=== PATIENT | male | born 1930 | race Caucasian/White ===

== ENCOUNTER 2016-11-06 12:26 | Inpatient (IN) | payer OTHER, BC ==
[2016-11-06] MEDS ORDERED: Sodium Chloride 0.9% 1,000 ML PRIMARY IV ONE (12:38)
[2016-11-06] MEDS ORDERED: NORMAL SALINE 10 ML SYRINGE FLUSH IVP PRN ×2 (12:38→15:43)
[2016-11-06] MEDS ORDERED: IPRATROPIUM/ALBUTEROL SULFATE 3 ML NEB NEB ONE (12:38)
[2016-11-06 13:23] LABS: BILIRUBIN,TOTAL 0.6 mg/dL (0.3-1.2); BUN/CREATININE RATIO 25.71 (6-20); CALCIUM 8.4 mg/dL (8.7-10.7); CREATININE 1.4 mg/dL (0.70-1.50); POTASSIUM 4.2 meq/L (3.8-5.2); TOTAL PROTEIN 6.6 g/dL (6.1-8.0)
[2016-11-06 13:25] LABS: BASOPHILS # (AUTO) 0.02 10*3/UL; BASOPHILS % (AUTO) 0.3 % (0-1); EOSINOPHILS % (AUTO) 2.3 % (0-8); HEMATOCRIT 35.6 % (42.0-52.0); IMM GRAN % (AUTO) 0.2 % (0-5); IMM GRAN# (AUTO) 0.01 10*3/UL; LYMPHOCYTES # (AUTO) 1.01 10*3/uL; LYMPHOCYTES % (AUTO) 16.8 % (10-50); MEAN CORPUSCULAR HEMOGLOBIN 28.6 PG (27-31); MEAN CORPUSCULAR HGB CONC 30.9 g/dL (33-37); MEAN PLATELET VOLUME 10.1 FL (7.4-12.2); MONOCYTES # (AUTO) 0.74 10*3/UL (0.3-0.8); MONOCYTES % (AUTO) 12.3 % (5-15); NEUTROPHILS # (AUTO) 4.09 10*3/UL; NEUTROPHILS % (AUTO) 68.1 % (50-80); RDW COEFFICIENT OF VARIATION 13.4 % (11.5-14.5); RED BLOOD COUNT 3.84 10^6/uL (4.70-6.10); WHITE BLOOD COUNT 6.01 10^3/uL (4.8-10.8)
[2016-11-06 13:29] LABS: PLATELET MORPHOLOGY COMMENT NORMAL MORPHOLOGY (NORM)
[2016-11-06] MEDS ORDERED: ALBUTEROL SULFATE 5 MG/ML-20 ML BOTTLE NEB ONE (13:43)
[2016-11-06] MEDS ORDERED: ALBUTEROL SULFATE 2.5 MG/3 ML NEB ONE (13:53)
[2016-11-06] MEDS ORDERED: cefTRIAXone Inj 2 GM in Sodium Chloride 0.9% 100 ML IV ONE (14:22)
[2016-11-06] MEDS ORDERED: ONDANSETRON 4 MG/2 ML VIAL IVP PRN (15:43)
[2016-11-06] MEDS ORDERED: LIDOCAINE W/ SODIUM BICARB 0.5 ML SYR SUBD PRN (15:43)
[2016-11-06] MEDS: IPRATROPIUM/ALBUTEROL SULFATE 3 ML NEB NEB SCH ×2 (16:19→20:39)
--- NOTE | 2016-11-06 16:34 | PDOC ---
History and Physical - History of Present Illness History of Present Illness: This very nice 86-year-old gentleman with past medical history of atrial fibrillation on Eliquis comes in with the 2-3 days of increased cough and shortness of breath. He also has +3 edema in his lower extremities. His chest pain nausea vomiting his last echo was believed that 9 months ago Past Medical History Medical History: A. fib, BPH Tobacco Use: Former Smoker Substance Use Type: None Medication / Allergies Home Medications: Home Medications Medication Instructions Recorded Confirmed Type Amlodipine Besylate 5 mg PO DAILY 11/06/16 11/06/16 History Apixaban [Eliquis] 5 mg PO DAILY 11/06/16 11/06/16 History Finasteride 5 mg PO DAILY 11/06/16 11/06/16 History Hydrochlorothiazide 25 mg PO DAILY 11/06/16 11/06/16 History Tamsulosin HCl [Flomax] 0.4 mg PO DAILY 11/06/16 11/06/16 History Allergies/Adverse Reactions: Allergies Allergy/AdvReac Type Severity Reaction Status Date / Time succinylcholine chloride Allergy NOT Verified 11/06/16 12:29 [From Anectine] APPLICABLE Review of Systems - Review of Systems All Systems: Reviewed & No Additional Complaints Except as Stated - Cardiovascular Cardiovascular: DENIES: Chest Pain - Gastrointestinal Gastrointestinal / Abdominal: DENIES: Negative System Review, Nausea, Vomiting, Diarrhea, Constipation, Abdominal Pain, Bloody Stool, Poor Appetite, Heartburn, Regurgitation, Bloating, Lactose Intolerance, Melena, Bright Red Blood Per Rectum, Other, See HPI - Genitourinary Genitourinary: DENIES: Negative System Review, Pain, Burning, Hematuria, Incontinence, Urgency, Hesitant Stream, Decreased Stream, Nocutria, Discharge, Sexual Dyfunction, Other, See HPI - Musculoskeletal Musculoskeletal: DENIES: Negative System Review, Back Pain, Neck Pain, Swelling , Calf Pain, Muscle Pain, Cramping, Joint Pain - Hands, Joint Pain - Elbows, Joint Pain - Shoulders, Joint Pain - Hips, Joint Pain - Knees, Joint Pain - Feet , AM Stiffness, Other, See HPI - Neurological Neurologic: DENIES: Negative System Review, Headache, Numbness/Paresthesia, Tremors, Weakness, Seizures, Head Trauma, LOC, Dizziness, Confusion, Memory Loss , Difficulty Walking, Incoordination, Other, See HPI Exam - Vitals Vital Signs: Vital Signs Temperature 98.1 F Temperature Source Temporal Artery Scan Pulse Rate 72 Respiratory Rate 18 Blood Pressure 145/80 Pulse Ox 96 Oxygen Flow Rate 3 Oxygen Delivery Method Nasal Cannula Height 6 ft 2 in Weight 112.672 kg - General General Appearance: POSITIVE: No Acute Distress, Cooperative - Eye Eye Exam: POSITIVE: Normal Appearance, PERRL, EOMI - Respiratory Additional Respiratory Exam Details: Bilateral rhonchi Rales both lungs - Cardiovascular Cardiovascular Exam: POSITIVE: No Murmur, +S1, +S2 Additional Cardiovascular Details: Irregularly irregular - GI/Abdominal GI/Abdominal Exam: POSITIVE: Normal Bowel Sounds, Non Distended, Soft - Extremities Extremities Exam: POSITIVE: Normal Capillary Refill, No Clubbing Present, No Edema Present - Neurological Neurological Exam: POSITIVE: Alert, Oriented x 3, Reflexes Normal, No Facial Droop, Speech Intact / Clear - Psychiatric Psychiatric Exam: POSITIVE: Normal Affect, Normal Mood Results - Labs CBC and BMP: 11/06/16 13:10 11/06/16 13:10 Assessment and Plan - Patient Problems (1) CHF (congestive heart failure) Current Visit: Yes Status: Acute Comment: I believe the patient has congestive heart failure exacerbation, most likely not pneumonia no fever no white count no left shift he did receive antibiotics and blood cultures in the ER I will order a CT scan of his chest rule out PE he does have some pain on inspiration most likely we will find pleural effusions but no infiltrate (2) Coronary disease Current Visit: Yes Status: Acute Comment: Patient had a stress test 2 years ago which was positive with a reversible defect in the LAD I don't see any casts being done we will order troponins 3 as well also had a 15 mm spiculated mass that was seen on the stress test
[2016-11-06] MEDS ORDERED: LIDOCAINE HCL 2 % 10 ML JELLY URO-JECT TOPICAL ONE (16:41)
--- NOTE | 2016-11-06 17:50 | PDOC ---
General Adult HPI - General Chief Complaint: Respiratory Complaint Stated Complaint: cough, abd pain Date Seen by Provider: 11/06/16 Time Seen by Provider: 12:27 Source: POSITIVE: Patient, Other (daughter) Exam Limitations: POSITIVE: No limitations Nurse's Notes Reviewed & Considered: Yes - History of Present Illness Initial Comment: The patient is an 86-year-old male who is brought to the emergency room by his daughter. Patient states that for the past 10 days he has had So cough productive of mucopurulent sputum. He states he has not taken his temperature but he thinks he might of been having some fevers and chills. He's also had some hoarseness. He states he's never been vaccinated for influenza or pneumonia. He does not smoke. He has abdominal diastases any states that when he coughs his abdominal "hernia"is uncomfortable he complains of some shortness of breath. No vomiting or diarrhea. No rashes or skin changes. Have you received a tetanus shot in the past 10 years?: No Body Location Affected: REPORTS: Chest Timing: REPORTS: Gradual, Getting Worse Duration: <1 week (Approximately one week) Severity: Moderate Quality: REPORTS: "Pain" (Some abdominal pain in the area of his abdominal diastases with cough) Context: REPORTS: None Modifying Factors: improves with: Nothing Similar Symptoms Previously: No Recent Care Received: REPORTS: Denies Any Prior Injuries Related to Current Complaint?: No (no) - Patient Home Medications Home Medications: Home Medications Amlodipine Besylate 5 mg PO DAILY 11/06/16 Apixaban [Eliquis] 5 mg PO DAILY 11/06/16 Finasteride 5 mg PO DAILY 11/06/16 Hydrochlorothiazide 25 mg PO DAILY 11/06/16 Tamsulosin HCl [Flomax] 0.4 mg PO DAILY 11/06/16 - Patient Allergies Allergies/Adverse Reactions: Allergies Allergy/AdvReac Type Severity Reaction Status Date / Time succinylcholine chloride Allergy NOT Verified 11/06/16 12:29 [From Anectine] APPLICABLE Past Medical History - andressa HEBRANDEN History: Denies History Cardiovascular History: Hypertension Respiratory History: Denies History Gastrointestinal History: Other (please comment) Additional Gastrointestinal History: abd wall pain Genitourinary History: Denies History Endocrine History: Denies History Musculoskeletal History: Denies History Prosthesis or Implant: No Neurological History: Denies History Blood Disorders: Denies History Psychiatric History: Denies History History of Sexually Transmitted Diseases: No Male Reproductive History: Denies History Cancer History: Denies History In Past Year Been Physically Harmed or Verbally Threatened: No History of MDRO: No History of Other Communicable Diseases: No Tobacco Use: Former Smoker Alcohol Use: Rarely Substance Use Type: None Previous Surgical History: No Significant Family History: No pertinent family hx Past Medical History Reviewed: Reviewed - No Changes ROS - Limitations ROS Limitations: No Limitations Constitution: REPORTS: Chills (Subjectively), Fever (Subjectively) Cardiovascular: REPORTS: Denies Cardiac Symptoms Respiratory: REPORTS: Cough Productive (Productive of mucoid sputum), Shortness Of Breath. DENIES: Hurts To Breathe Neurological: REPORTS: Denies Neuro Symptoms Gastrointestinal: REPORTS: Denies GI Symptoms Endocrine: REPORTS: Denies Symptoms Musculoskeletal: REPORTS: Denies MS Symptoms Genitourinary: REPORTS: Denies Symptoms Eyes: REPORTS: Denies Symptoms ENT: REPORTS: Denies Symptoms Skin: REPORTS: Denies Skin Symptoms Lympathic: REPORTS: Denies Lympathic Symptoms Immunologic: POSITIVE: Denies Symptoms Psychiatric: POSITIVE: Denies Psych Symptoms General Adult Exam - General Appearance General Appearance: POSITIVE: Alert, Cooperative, No Acute Distress, No Evidence of Trauma - HEENT HEENT: POSITIVE: Head Inspection Nml, Eyes Inspection Nml, Ears Inspection Nml, Nose Inspection Nml, Oral/Dental Inspect. Nml, Pharynx Inspect. Nml, PERRL, EOMI - Pupils Pupil Size: 4 mm: Bilateral (PERRLA) - Neck Neck: POSITIVE: Normal Inspection, Thyroid Normal - Respiratory Respiratory: POSITIVE: Chest Non-Tender, Rales (Bibasilar rales), Rhonchi ( Diffuse rhonchi both lung tanner, especially left posterior) - Cardiovascular Cardiovascular: POSITIVE: Regular Rate & Rhythm, No Murmur, No Gallop, PMI Normal Peripheral Pulses: Radial (R): 2+, Radial (L): 2+ - Abdomen Abdomen: Soft: (All Quadrants), Normal Bowel Sounds: (All Quadrants), Denies Tenderness: (All Quadrants), No Splenomegaly: (All Quadrants), No Hepatomegaly: (All Quadrants), No Guarding: (All Quadrants), No Rebound: (All Quadrants), No Palpable Pulse: (All Quadrants), No Palpabale Mass: (All Quadrants), No Distention: (All Quadrants), No Rigidity: (All Quadrants) Additional Abdominal Details: Abdominal examination shows bowel sounds to be active. Abdomen is nontender and without masses, organomegaly or rebound. Abdominal diastases is noted; no incarceration. 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 Cardiomegaly. Lab Results Reviewed: Yes Lab Results:: Laboratory Results 11/06/16 Range/Units 13:10 WBC 6.01 (4.8-10.8) 10^3/uL RBC 3.84 L (4.70-6.10) 10^6/uL Hgb 11.0 L (14.0-18.0) g/dL Hct 35.6 L (42.0-52.0) % MCV 92.7 H (80-90) FL MCH 28.6 (27-31) PG MCHC 30.9 L (33-37) g/dL RDW Std Deviation 44.3 (39-50) fL RDW Coeff of Wendy 13.4 (11.5-14.5) % Plt Count 303 (140-350) 10*3/uL MPV 10.1 (7.4-12.2) FL Immature Gran % (Auto) 0.2 (0-5) % Neut % (Auto) 68.1 (50-80) % Lymph % (Auto) 16.8 (10-50) % Moffat % (Auto) 12.3 (5-15) % Eos % (Auto) 2.3 (0-8) % Baso % (Auto) 0.3 (0-1) % Immature Gran # (Auto) 0.01 10*3/UL Neut # (Auto) 4.09 10*3/UL Lymph # (Auto) 1.01 10*3/uL Moffat # (Auto) 0.74 (0.3-0.8) 10*3/UL Eos # (Auto) 0.14 10*3/UL Baso # (Auto) 0.02 10*3/UL WBC Morphology Comment Normal morphology (NORM) Plt Morphology Comment Normal morphology (NORM) RBC Morph Comment Normal morphology (NORM) Sodium 136 (135-145) meq/L Potassium 4.2 (3.8-5.2) meq/L Chloride 103 (98-112) meq/L Carbon Dioxide 23 (23-33) meq/L Anion Gap 10 (5-20) BUN 36 H (7-22) mg/dL Creatinine 1.4 (0.70-1.50) mg/dL Estimated GFR (>60 ml/min/1.73m(2)) BUN/Creatinine Ratio 25.71 H (6-20) Glucose 122 H (78-110) mg/dL Calculated Osmolality 290.0 (267-292) mOsm/kg Calcium 8.4 L (8.7-10.7) mg/dL Total Bilirubin 0.6 (0.3-1.2) mg/dL AST 20 L (21-57) IU/L ALT 25 (21-72) IU/L Alkaline Phosphatase 63 (38-126) IU/L Total Protein 6.6 (6.1-8.0) g/dL Albumin 3.5 (3.5-4.8) g/dL Globulin 3.1 (2.50-4.10) g/dL Albumin/Globulin Ratio 1.10 L (1.3-2.0) mg/g - Patient's Progress Pain Medication Addressed: POSITIVE: Not Applicable School/Work Release Addressed: POSITIVE: Not Applicable Re-Examine Time: 14:00 Re-Examine Comment: Oxygen saturation 96% on 3 L/m by nasal cannula. Patient given a DuoNeb nebulizer treatment followed with an albuterol nebulizer treatment with some clearing; patient still has prominent rhonchi. Blood cultures drawn and patient given 2 g of Rocephin and 500 mg Zithromax IV. Status: POSITIVE: Improved, Re-Examined Antibiotics Given: Yes (Rocephin 2 g; Zithromax 500 mg, both IV) Quality Measure Initiative: CAP: POSITIVE: SaO2, Antibiotic(s), BC, CXR or CT - Consult Consult (If Yes, Name of Consulting MD & Time Called): Yes (Dr. Young, hospitalist, [id number]) Consulting MD will see pt:: POSITIVE: [facility] Admit Counseled: POSITIVE: Patient, Family (Daughter), RE: Lab Results, RE: Radiology Results, RE: DX, RE: Need for F/U Patient Care Time - Estimated PCT Patient Care Time (In Minutes): 45 Vital Signs - Recent Vital Signs Vital Signs: Vital Signs (Last 8 hours) Temp Pulse Pulse Resp BP BP Pulse Ox 11/06/16 15:41 98.1 F 72 18 145/80 96 11/06/16 12:34 97.9 F 70 18 127/73 91 - VS Reviewed Vital Signs Reviewed: Yes Discharge Clinical Impression: Pneumonia, Pleural effusion Discharge Disposition: Admit to Inpatient Condition: Fair Date Decision to Admit to Inpatient: 11/06/16 Time Decision to Admit to Inpatient: 14:00
--- NOTE | 2016-11-06 21:20 | DI ---
PA /LATERAL CHEST X-RAY, 11/06/2016 12:39 PM : Clinical History: Cough. Previous Exam: None at this facility. There is no acute soft tissue or bony abnormality. There is cardiomegaly without overt CHF. The heart has a "globular" configuration either representing a pericardial effusion or a cardiomyopathy. On th e lateral film, there is separation of the pericardial fat pad from the epicardial fat pad by approxi mately 2 cm toward the left jugular apex and this would be consistent with a moderate to large perica rdial effusion. There is left lower lobe atelectasis and a small left pleural effusion. There is a ve ry minimal right pleural effusion. Mediastinal structures are normal. There are no pulmonary nodules. Readin. Small left pleural effusion with left lower lobe atelectasis. There is a very small right pleural effusion in the posterior sulcus. 2. There is cardiomegaly with a "globular" configuration and with the separation of the epicardial f at pad from the pericardial fat pad, this patient most likely has a pericardial effusion that is rela tively large.
--- NOTE | 2016-11-06 21:27 | DI ---
CT CHEST SCAN WITHOUT IV CONTRAST, 11/06/2016 7:27 PM : Clinical History: Pain. Cough. The patient does have renal insufficiency. Previous Exam: None at this facility. Scans are performed from the base of the neck to the lower lung bases without IV contrast. Sagittal a nd coronal images using non MIPS and MIPS technique are generated. The base of the neck and thoracic inlet are normal. There are no abnormal axillary, supraclavicular, mediastinal, or hilar nodes. There is a large pericardial effusion approaching a thickness of 15-20 m m in some portions. The heart size is normal. There are coronary artery calcifications throughout the length of the LAD and right coronary arteries and the very proximal portion of the left circumflex a rtery. There is evidence of pulmonary arterial hypertension with a caliber of the pulmonary arteries being larger than that of the aorta. The caliber of the ascending and descending aorta are normal. Th ere is a small left pleural effusion with left lower lobe atelectasis. A very small right pleural eff usion is present. There is no significant increase in Klaus A or Klaus B lines as would be expected if this patient had significant CHF. Both adrenal glands and the spleen and the visualized portions of the liver and pancreas are normal. READIN. There is a large pericardial effusion that confirms the findings seen on the chest x-ray obtained earlier today. Coronary artery calcifications are present in the length of the LAD and also the righ t coronary artery, as well as in the proximal portion of the left circumflex artery. 2. Bilateral pleural effusions, small on the left side and very small on the right side. There is le ft lower lobe atelectasis.
[2016-11-06] MEDS ORDERED: ACETAMINOPHEN 500 MG TABLET PO PRN (23:43)
[2016-11-06] MEDS ORDERED: ACETAMINOPHEN 500 MG TABLET PO ONE (23:54)
[2016-11-07 05:39] LABS: BASOPHILS # (AUTO) 0.02 10*3/UL; BASOPHILS % (AUTO) 0.3 % (0-1); HEMATOCRIT 36.8 % (42.0-52.0); HEMOGLOBIN 11.3 g/dL (14.0-18.0); IMM GRAN % (AUTO) 0.2 % (0-5); IMM GRAN# (AUTO) 0.01 10*3/UL; LYMPHOCYTES # (AUTO) 0.89 10*3/uL; LYMPHOCYTES % (AUTO) 14.4 % (10-50); MEAN CORPUSCULAR HEMOGLOBIN 28.3 PG (27-31); MEAN CORPUSCULAR HGB CONC 30.7 g/dL (33-37); MEAN PLATELET VOLUME 10.6 FL (7.4-12.2); MONOCYTES % (AUTO) 12.9 % (5-15); NEUTROPHILS # (AUTO) 4.41 10*3/UL; NEUTROPHILS % (AUTO) 71.2 % (50-80); RDW COEFFICIENT OF VARIATION 13.8 % (11.5-14.5); RED BLOOD COUNT 3.99 10^6/uL (4.70-6.10); WHITE BLOOD COUNT 6.19 10^3/uL (4.8-10.8)
[2016-11-07 05:43] LABS: PLATELET MORPHOLOGY COMMENT NORMAL MORPHOLOGY (NORM)
[2016-11-07 05:49] LABS: BUN/CREATININE RATIO 22.14 (6-20); CALCIUM 8.4 mg/dL (8.7-10.7); CREATININE 1.4 mg/dL (0.70-1.50)
[2016-11-07] MEDS: IPRATROPIUM/ALBUTEROL SULFATE 3 ML NEB NEB SCH (06:24)
[2016-11-07 07:45] VITALS: TEMP 98.6
[2016-11-07] MEDS ORDERED: Magnesium Sulfate 2gm (Premix) 2 GM in Premix 1 BAG IV ONE ×2 (08:50→09:48)
[2016-11-07] MEDS ORDERED: FINASTERIDE 5 MG TABLET PO SCH (09:00)
[2016-11-07] MEDS ORDERED: HYDROCHLOROTHIAZIDE 25 MG TABLET PO SCH (09:00)
[2016-11-07] MEDS ORDERED: AmLODIPine Tab 5 MG TABLET PO SCH (09:00)
[2016-11-07] MEDS ORDERED: Apixaban 5 MG TABLET PO SCH (09:00)
[2016-11-07] MEDS ORDERED: TAMSULOSIN 0.4 MG CAPSULE PO SCH (09:00)
[2016-11-07] MEDS ORDERED: Metoprolol TARTRATE Tab 50 MG TAB PO SCH (09:00)
--- NOTE | 2016-11-07 09:01 | EKG ---
[address] [address] Measurements Intervals [place] Rate: 72 P: DC: 0 QRS: 51 QRSD: 129 T: 53 QT: 405 QTc: 430 Interpretive Statements ATRIAL FLUTTER/TACHYCARDIA INCOMPLETE RIGHT BUNDLE BRANCH BLOCK ABNORMAL RHYTHM ECG No previous ECG available for comparison Electronically Signed On 11-07-16 20:25:35 MST by René Vines [email or web address]
[2016-11-07] MEDS ORDERED: DILTIAZEM 5 MG/ML - 5 ML IV ONE ×2 (09:09→09:48)
[2016-11-07] MEDS ORDERED: Diltiazem Drip 125 MG in Sodium Chloride 0.9% 100 ML IV SCH ×2 (09:15→09:48)
[2016-11-07] MEDS ORDERED: ACETAMINOPHEN 500 MG TABLET PO PRN (09:48)
[2016-11-07] MEDS ORDERED: LIDOCAINE W/ SODIUM BICARB 0.5 ML SYR SUBD PRN (09:48)
[2016-11-07] MEDS ORDERED: NORMAL SALINE 10 ML SYRINGE FLUSH IVP PRN (09:48)
[2016-11-07 10:37] VITALS: RESP 18
[2016-11-07] MEDS ORDERED: IPRATROPIUM/ALBUTEROL SULFATE 3 ML NEB NEB SCH (11:00)
--- NOTE | 2016-11-07 11:16 | DCSUMMARY ---
Hospitalization Summary Hospital Course: Final Discharge Diagnosis: Current Visit Problems Problem Status Priority Diagnosed Code CHF (congestive heart failure) Acute I50.9 Coronary disease Acute I25.10 Pleural effusion Acute J90 Pericardial effusion Diagnostic Data, Laboratory Data, and Procedures of Signifigance: Laboratory Results 11/06/16 11/06/16 11/06/16 Range/Units 13:10 17:15 23:22 WBC 6.01 (4.8-10.8) 10^3/uL RBC 3.84 L (4.70-6.10) 10^6/uL Hgb 11.0 L (14.0-18.0) g/dL Hct 35.6 L (42.0-52.0) % MCV 92.7 H (80-90) FL MCH 28.6 (27-31) PG MCHC 30.9 L (33-37) g/dL RDW Std Deviation 44.3 (39-50) fL RDW Coeff of Wendy 13.4 (11.5-14.5) % Plt Count 303 (140-350) 10*3/uL MPV 10.1 (7.4-12.2) FL Immature Gran % (Auto) 0.2 (0-5) % Neut % (Auto) 68.1 (50-80) % Lymph % (Auto) 16.8 (10-50) % Hanson % (Auto) 12.3 (5-15) % Eos % (Auto) 2.3 (0-8) % Baso % (Auto) 0.3 (0-1) % Immature Gran # (Auto) 0.01 10*3/UL Neut # (Auto) 4.09 10*3/UL Lymph # (Auto) 1.01 10*3/uL Hanson # (Auto) 0.74 (0.3-0.8) 10*3/UL Eos # (Auto) 0.14 10*3/UL Baso # (Auto) 0.02 10*3/UL WBC Morphology Comment Normal morphology (NORM) Plt Morphology Comment Normal morphology (NORM) RBC Morph Comment Normal morphology (NORM) Sodium 136 (135-145) meq/L Potassium 4.2 (3.8-5.2) meq/L Chloride 103 (98-112) meq/L Carbon Dioxide 23 (23-33) meq/L Anion Gap 10 (5-20) BUN 36 H (7-22) mg/dL Creatinine 1.4 (0.70-1.50) mg/dL Estimated GFR (>60 ml/min/1.73m(2)) BUN/Creatinine Ratio 25.71 H (6-20) Glucose 122 H (78-110) mg/dL Calculated Osmolality 290.0 (267-292) mOsm/kg Calcium 8.4 L (8.7-10.7) mg/dL Magnesium (1.6-2.4) mg/dL Total Bilirubin 0.6 (0.3-1.2) mg/dL AST 20 L (21-57) IU/L ALT 25 (21-72) IU/L Alkaline Phosphatase 63 (38-126) IU/L Troponin I < 0.012 (< 0.040) ng/mL NT-Pro-B Natriuret Pep 2320 H (0-450) PG/ML Total Protein 6.6 (6.1-8.0) g/dL Albumin 3.5 (3.5-4.8) g/dL Globulin 3.1 (2.50-4.10) g/dL Albumin/Globulin Ratio 1.10 L (1.3-2.0) mg/g 11/07/16 11/07/16 Range/Units 04:28 05:00 WBC 6.19 (4.8-10.8) 10^3/uL RBC 3.99 L (4.70-6.10) 10^6/uL Hgb 11.3 L (14.0-18.0) g/dL Hct 36.8 L (42.0-52.0) % MCV 92.2 H (80-90) FL MCH 28.3 (27-31) PG MCHC 30.7 L (33-37) g/dL RDW Std Deviation 45.6 (39-50) fL RDW Coeff of Wendy 13.8 (11.5-14.5) % Plt Count 330 (140-350) 10*3/uL MPV 10.6 (7.4-12.2) FL Immature Gran % (Auto) 0.2 (0-5) % Neut % (Auto) 71.2 (50-80) % Lymph % (Auto) 14.4 (10-50) % Hanson % (Auto) 12.9 (5-15) % Eos % (Auto) 1.0 (0-8) % Baso % (Auto) 0.3 (0-1) % Immature Gran # (Auto) 0.01 10*3/UL Neut # (Auto) 4.41 10*3/UL Lymph # (Auto) 0.89 10*3/uL Hanson # (Auto) 0.80 (0.3-0.8) 10*3/UL Eos # (Auto) 0.06 10*3/UL Baso # (Auto) 0.02 10*3/UL WBC Morphology Comment Normal morphology (NORM) Plt Morphology Comment Normal morphology (NORM) RBC Morph Comment Normal morphology (NORM) Sodium 140 (135-145) meq/L Potassium 4.0 (3.8-5.2) meq/L Chloride 102 (98-112) meq/L Carbon Dioxide 26 (23-33) meq/L Anion Gap 12 (5-20) BUN 31 H (7-22) mg/dL Creatinine 1.4 (0.70-1.50) mg/dL Estimated GFR (>60 ml/min/1.73m(2)) BUN/Creatinine Ratio 22.14 H (6-20) Glucose 96 (78-110) mg/dL Calculated Osmolality 296.0 H (267-292) mOsm/kg Calcium 8.4 L (8.7-10.7) mg/dL Magnesium 2.1 (1.6-2.4) mg/dL Total Bilirubin (0.3-1.2) mg/dL AST (21-57) IU/L ALT (21-72) IU/L Alkaline Phosphatase (38-126) IU/L Troponin I 0.013 (< 0.040) ng/mL NT-Pro-B Natriuret Pep (0-450) PG/ML Total Protein (6.1-8.0) g/dL Albumin (3.5-4.8) g/dL Globulin (2.50-4.10) g/dL Albumin/Globulin Ratio (1.3-2.0) mg/g Microbiology 11/06/16 13:10 Nasal Swab Influenza Types A,B Direct EIA - Final Course of Hospitalization: Is a very nice 86-year-old gentleman with past medical history significant for chronic A. fib flutter/A. fib also had a Lexiscan stress test in December 2015 because he had to go a hip replacement. He also has a history of BPH. His primary care physician is Jason Simpson in [place] and Dr. Fernandez did his hip replacement comes into the hospital because of shortness of breath over the last week in the ER they thought the patient had a pneumonia after my evaluation the the patient clearly has a congestive heart failure with +3 lower extremity edema and rolls bilaterally in his lungs. BNP was elevated at around the 2800 range patient was started on a Lasix drip. Continues to be short of breath CT scan of his chest the revealed the large pericardial effusion. Because of his positive stress test, pericardial effusion, chronic A. fib patient will be transferred to [facility] [place] of the care of Dr. Rodriguez who accepted the patient. The patient is on Eliquis which was started by Dr. odell he is on no rate control medication. I talked to the patient and the family and they are in agreement with the transfer and will like to know more and also to have more options in regards to his chronic A. fib his positive stress test and pericardial effusion On the date of discharge, the patient was examined: Gen.: No acute distress, alert, nontoxic Heart: Regular rate and rhythm, no murmurs, clicks, gallops, or rubs there is no JVD Lungs: Show some rales at the bases, breathing is nonlabored Abdomen/GI: Normal tones on auscultation, soft, nontender, nondistended Musculoskeletal/extremities: No clubbing, cyanosis, edema is improved compared to yesterday Vitals reviewed and are listed below Assessment and Plan: 1. As per discharge assessments above 2. Disposition: [facility] [place] 3. Condition on discharge, stable and improved. 4. Diet: regular diet 5. Activities: resume normal activities 6. Follow-Up: 1. PCP 2. 7. Medications at the Time of Discharge: Active Medications Generic Name Dose Route Start Last Admin Trade Name Freq PRN Reason Stop Dose Admin Acetaminophen 500 mg 11/07/16 09:48 Tylenol PO Q6H PRN FEVER > 102 Albuterol/Ipratropium 3 ml 11/07/16 11:00 11/07/16 11:11 Duoneb Neb Soln NEB Not Given RTQID [facility] Amlodipine Besylate 5 mg 11/08/16 09:00 Norvasc PO DAILY [facility] Apixaban 5 mg 11/08/16 09:00 Eliquis PO DAILY [facility] Finasteride 5 mg 11/08/16 09:00 Proscar PO DAILY [facility] Hydrochlorothiazide 25 mg 11/08/16 09:00 Hydrodiuril PO DAILY [facility] Diltiazem HCl 125 mg/ Sodium 125 mls @ 10 mls/hr 11/07/16 09:48 11/07/16 10:11 Chloride IV 10 mls/hr .TITRATE [facility] Administration Protocol 10 MG/HR Furosemide 100 mg/ Sodium 110 mls @ 11 mls/hr 11/07/16 12:45 11/07/16 10:14 Chloride IV 11 mls/hr Q10H [facility] Administration Protocol 10 MG/HR Sodium Chloride 25 mls @ 200 mls/hr 11/07/16 09:48 Normal Saline 0.9% IV .Post Infusion PRN No Primary IV for Flush ONLY Lidocaine HCl 0.5 ml 11/07/16 09:48 Lidocaine Buffered Inj SUBD ONCE PRN IV Starts Sodium Chloride 5 - 20 ml 11/07/16 09:48 Saline Flush IVP BID PRN Flush Tamsulosin HCl 0.4 mg 11/08/16 09:00 Flomax PO DAILY [facility] 8. Time, care, counseling and coordination of care for this discharge is greater than 30 minutes. Exam - Vitals Vital Signs: Vital Signs Temperature 98.6 F Temperature Source Oral Pulse Rate [Telemetry] 73 Pulse Rate [Apical] 70 Pulse Rate [Pulse Oximeter] 73 Pulse Rate 74 Respiratory Rate 18 Blood Pressure [Right Arm] 120/68 Blood Pressure [Left Arm] 94/54 Blood Pressure 145/80 Pulse Ox 93 Oxygen Flow Rate 3L Oxygen Delivery Method Nasal Cannula Height 6 ft 2 in Weight 105.914 kg Patient Problems - Patient Problem List (1) CHF (congestive heart failure) Current Visit: Yes Status: Acute (2) Coronary disease Current Visit: Yes Status: Acute (3) Pericardial effusion Current Visit: Yes Status: Acute Comment: This was seen on CT scan
[2016-11-07] MEDS ORDERED: cefTRIAXone Inj 2 GM in Sodium Chloride 0.9% 100 ML IV SCH (14:30)
[2016-11-08] MEDS ORDERED: FINASTERIDE 5 MG TABLET PO SCH (09:00)
[2016-11-08] MEDS ORDERED: HYDROCHLOROTHIAZIDE 25 MG TABLET PO SCH (09:00)
[2016-11-08] MEDS ORDERED: TAMSULOSIN 0.4 MG CAPSULE PO SCH (09:00)
[2016-11-08] MEDS ORDERED: AmLODIPine Tab 5 MG TABLET PO SCH (09:00)
[2016-11-08] MEDS ORDERED: Apixaban 5 MG TABLET PO SCH (09:00)
--- NOTE | 2016-11-09 10:10 | PTI REPORT ---
Thank you for the referral of Nicanor Grover. She was seen on 11/06/16 for an inpatient evaluation secondary to weakness. SUBJECTIVE: The patient is an 86-year-old male. [place] was [place] able to perform all ADLs independently. He states he does not use a cane or a walker. The patient's family members have been trying to figure out what has been going on with him; his legs have been swollen. The patient reports that mobility has not been a problem in the past. PAST MEDICAL HISTORY: Past medical history can be found in the patient's medical record. OBJECTIVE FINDINGS: General observations: The patient was seen supine in bed as he was being treated by respiratory therapy upon PT arrival. Per nursing request, we are unable to get the patient up out of bed because nursing was still trying to hook the patient up to lines and leads that were necessary prior to movement. We will continue to assess the patient as able. ASSESSMENT: The patient is an 86-year-old male who was previously independent. The patient will benefit from skilled therapy in order to improve overall mobility and strengthening. Problem List: Weakness Physical Therapy Goals: To be met by discharge from inpatient: Patient will be independent with all transfers. Patient will be able to return to prior level of function. Patient will be able to tolerate 30 minutes of activity. TREATMENT PLAN: Patient will be seen B.I.D during the week and one time per day over the weekend as an inpatient for therapeutic exercise, functional activity, gait training, neuromuscular reeducation, and modalities as needed. INITIAL TREATMENT: Treatment today consisted of the initial evaluation activities only. No further treatment was issued due to nursing's request. We will continue to evaluate the patient as able. [facility]
== END 2016-11-07 11:35 | disposition short-term general hospital (02) | DRG 292 ==
LOC: ER 12:26 → MED/SURG 14:25 → ICU 11-07 09:13 → MED/SURG 11-07 09:13
PROVIDERS: ADMIT Internal Medicine; ATTEND Internal Medicine
DX: J18.9 Pneumonia, unspecified organism (principal); I50.9 Heart failure, unspecified; R10.9 Unspecified abdominal pain; J90 Pleural effusion, not elsewhere classified; I25.10 Atherosclerotic heart disease of native coronary artery without angina pectoris; I48.91 Unspecified atrial fibrillation
CPT/HCPCS: 36415; 71020; 80053; 85025; 87040; 87804; 94640; 99284 ×2; J7620; 71250; 80048; 83735; 83880; 84484; 93005; 93010; 94761; 97162; J0696; J1940; J3475; J7030; J7050

== ENCOUNTER → 2016-11-16 | Outpatient (CLI) | payer OTHER, BC ==
[2016-11-16 08:03] LABS: BUN/CREATININE RATIO 27.33 (6-20); CALCIUM 8.9 mg/dL (8.7-10.7)
== END ==
LOC: LAB 07:28
PROVIDERS: ATTEND Nurse Practitioner Family
DX: I25.10 Atherosclerotic heart disease of native coronary artery without angina pectoris (principal)
CPT/HCPCS: 36415; 80048

== ENCOUNTER → 2016-12-03 | Outpatient (CLI) | payer OTHER, BC ==
[2016-12-03 13:34] LABS: BASOPHILS # (AUTO) 0.02 10*3/UL; BASOPHILS % (AUTO) 0.2 % (0-1); EOSINOPHILS # (AUTO) 0.61 10*3/UL; EOSINOPHILS % (AUTO) 7.3 % (0-8); HEMATOCRIT 36.6 % (42.0-52.0); HEMOGLOBIN 11.2 g/dL (14.0-18.0); LYMPHOCYTES # (AUTO) 0.98 10*3/uL; MEAN CORPUSCULAR HEMOGLOBIN 27.5 PG (27-31); MEAN CORPUSCULAR HGB CONC 30.6 g/dL (33-37); MEAN CORPUSCULAR VOLUME 89.7 FL (80-90); MEAN PLATELET VOLUME 9.9 FL (7.4-12.2); MONOCYTES # (AUTO) 0.67 10*3/UL (0.3-0.8); NEUTROPHILS # (AUTO) 6.09 10*3/UL; NEUTROPHILS % (AUTO) 72.6 % (50-80); RED BLOOD COUNT 4.08 10^6/uL (4.70-6.10)
[2016-12-03 13:41] LABS: BUN/CREATININE RATIO 22.14 (6-20); CALCIUM 8.7 mg/dL (8.7-10.7); SERUM ALBUMIN 3.3 g/dL (3.5-4.8)
[2016-12-03 13:48] LABS: PLATELET MORPHOLOGY COMMENT NORMAL MORPHOLOGY (NORM); RBC MORPHOLOGY COMMENT NORMAL MORPHOLOGY (NORM); WBC MORPHOLOGY COMMENT NORMAL MORPHOLOGY (NORM)
== END ==
LOC: LAB 13:04
PROVIDERS: ATTEND Internal Medicine
DX: Z79.899 Other long term (current) drug therapy (principal)
CPT/HCPCS: 36415; 80053; 85025

== ENCOUNTER → 2016-12-24 | Outpatient (CLI) | payer OTHER, BC ==
[2016-12-24 08:06] LABS: CALCIUM 8.8 mg/dL (8.7-10.7)
== END ==
LOC: LAB 07:13
PROVIDERS: ATTEND Nurse Practitioner Family
DX: I50.30 Unspecified diastolic (congestive) heart failure (principal)
CPT/HCPCS: 36415; 80048

== ENCOUNTER → 2017-01-08 | Outpatient (CLI) | payer OTHER, BC ==
[2017-01-08 07:43] LABS: BUN/CREATININE RATIO 19.23 (6-20)
== END ==
LOC: LAB 07:18
PROVIDERS: ATTEND Internal Medicine Cardiovascular Disease
DX: Z79.899 Other long term (current) drug therapy (principal)
CPT/HCPCS: 36415; 80048